=== PATIENT | male | born 1975 | race Caucasian/White ===

== ENCOUNTER 2025-02-21 11:13 | Outpatient (CLI) | payer OTHER ==
--- NOTE | 2025-02-21 12:32 | RADIOLOGY REPORT ---
CLINICAL INFORMATION: 49 years old, Male; PAIN IN RIGHT SHOULDER. TECHNIQUE: Multisequence multiplanar MRI images of the right shoulder were obtained without contrast . COMPARISON: None FINDINGS: On coronal images no joint effusion. No fluid in the subacromial subdeltoid bursa Rotator cuff tendons are intact. Small degenerative cysts seen in the humeral head. On transaxial images subscapularis tendon is intact. Tendon for long head of the biceps seen within the bicipital groove. There is a degenerative tear in the posterior glenoid labrum with a small lb labral cyst. The biceps labral anchor is intact. The intra-articular biceps is intact On sagittal images glenohumeral ligaments are intact. Tendon for the long head of the biceps intact. 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 No rotator cuff tear or tendinopathy. 2. Tear posterior glenoid labrum probably old with small perilabral cyst 3. 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
== END 2025-02-21 23:59 | disposition home or self-care (01) ==
LOC: MRI02 11:13
PROVIDERS: ATTEND Student in an Organized Health Care Education/Training Program
DX: S46.911A Strain of unspecified muscle, fascia and tendon at shoulder and upper arm level, right arm, initial encounter (principal); M19.011 Primary osteoarthritis, right shoulder; M25.511 Pain in right shoulder; X58.XXXA Exposure to other specified factors, initial encounter; Y93.89 Activity, other specified; Y92.89 Other specified places as the place of occurrence of the external cause; Y99.8 Other external cause status; M75.81 Other shoulder lesions, right shoulder
CPT/HCPCS: 73221

== ENCOUNTER 2025-08-04 06:00 | Outpatient (CLI) | payer OTHER ==
[2025-08-04] MEDS ORDERED: iohexol 300 MG/1 ML 50ml polymer ONE (06:32)
[2025-08-04] MEDS ORDERED: LIDOcaine 1% 30ml preserv. free vial ONE (06:32)
[2025-08-04] MEDS ORDERED: GADOTERATE MEGLUMINE 7.5 MMOL/15 ML VIAL IV ONE (06:32)
[2025-08-04] MEDS ORDERED: LIDOcaine 1%/PF 5ML 10 MG/ML VIAL ONE (06:32)
--- NOTE | 2025-08-04 08:27 | RADIOLOGY REPORT ---
C-ARM FLUOROSCOPY: PROCEDURE: Right shoulder MRI arthrogram FLUOROSCOPY TIME: 0.1 Air Kerma: 1 mgy FINDINGS: Spot intraoperative C arm radiographs demonstrating right shoulder MRI arthrogram. IMPRESSION: Please refer to surgical report for detailed findings.
--- NOTE | 2025-08-04 09:00 | RADIOLOGY REPORT ---
CLINICAL INDICATION: PAIN IN RIGHT SHOULDER COMPARISON: MR MRI UPPER EXTREMITY RIGHT on DOS: 02/21/25 TECHNIQUE: Multiplanar, multi-sequence MRI of the right shoulder was performed using dilute gadolinium Contrast: None INTERPRETATION: Glenohumeral joint: The joint is appropriately distended with intra-articular contrast. There is no fracture or bone marrow edema. The alignment is normal. There is chondral thinning of the superolateral humeral head with subchondral cysts. Acromioclavicular joint: The acromoclavicular joint is narrowed with capsular hypertrophy. Rotator cuff and bursae: There is mild infraspinatus tendinosis. The supraspinatus, subscapularis and teres minor tendons are intact. There is no muscle atrophy. There is no subacromial subdeltoid bursal fluid. Biceps tendon and glenoid labrum: The biceps tendon is not torn. Tendinosis is present in the intra-articular portion of the tendon. There is a tear of the anterior superior, direct superior and posterior superior as well as inferior segments of the labrum. IMPRESSION: 1. Multi-directional labral tear involving all segments. 2. Mild degenerative changes in the glenohumeral joint. 3. Mild infraspinatus tendinosis. No rotator cuff tear.
== END 2025-08-04 23:59 | disposition home or self-care (01) ==
LOC: RAD 06:00
PROVIDERS: ATTEND Orthopaedic Surgery
DX: M25.511 Pain in right shoulder (principal); M19.011 Primary osteoarthritis, right shoulder
CPT/HCPCS: 23350; 73222; 77002; A9575; J2003; J3490; Q9967